=== PATIENT | male | born 1955 | race Caucasian/White ===

== ENCOUNTER → 2017-07-28 | Outpatient (CLI) | payer OTHER | END | disposition home or self-care (01) | LOC: MAMO-SONO 08:15 → SONOGRAMA 08:54 | DX: M75.121 Complete rotator cuff tear or rupture of right shoulder, not specified as traumatic (principal) ==

== ENCOUNTER 2021-10-19 01:57 | Emergency (ER) | payer OTHER ==
[~2021-10-19] VITALS: Ht 167.6 cm; Wt 81.6 kg
[2021-10-19] MEDS ORDERED: COZAAR50 MG PO (02:06)
[2021-10-19] MEDS ORDERED: SIMVASTATIN80 MG PO (02:07)
[2021-10-19] MEDS ORDERED: MOLNUPIRAVIR (200 MG PO (04:59)
[2021-10-19] MEDS ORDERED: ACETAMINOPHEN650 M2 PO (04:59)
[2021-10-19] MEDS ORDERED: MUCINEX DM ER1 EAC1 PO (04:59)
== END 2021-10-19 05:08 | disposition home or self-care (01) ==
LOC: ER 01:57
DX: U07.1 COVID-19 (principal)

== ENCOUNTER 2022-09-30 23:30 | Emergency (ER) | payer OTHER ==
[~2022-09-30] VITALS: Ht 167.6 cm; Wt 70.8 kg
[~2022-09-30 23:30] MED LIST: ACETAMINOPHEN650 M2 PO; COZAAR50 MG PO; MOLNUPIRAVIR (200 MG PO; MUCINEX DM ER1 EAC1 PO; SIMVASTATIN80 MG PO
[2022-10-01] MEDS ORDERED: INTESTINEX680 M1 PO (07:02)
[2022-10-01] MEDS ORDERED: DICY20TA PO (07:02)
[2022-10-01] MEDS ORDERED: PEPCID AC20 MG PO (07:02)
== END 2022-10-01 07:24 | disposition home or self-care (01) ==
LOC: ER 23:30
DX: K59.00 Constipation, unspecified (principal); R10.9 Unspecified abdominal pain; R11.0 Nausea; I12.9 Hypertensive chronic kidney disease with stage 1 through stage 4 chronic kidney disease, or unspecified chronic kidney disease; N18.9 Chronic kidney disease, unspecified; K29.70 Gastritis, unspecified, without bleeding; K57.30 Diverticulosis of large intestine without perforation or abscess without bleeding; N32.3 Diverticulum of bladder; N20.0 Calculus of kidney

== ENCOUNTER 2023-03-02 13:43 | Emergency (ER) | payer OTHER ==
[~2023-03-02] VITALS: Ht 167.6 cm; Wt 72.6 kg
[~2023-03-02 13:43] MED LIST changes: +DICY20TA PO; +INTESTINEX680 M1 PO; +PEPCID AC20 MG PO
[2023-03-02 17:03] LABS: HEMATOCRIT 41.5 % (39.0-48.0); HEMOGLOBIN 14.5 g/dL (13-16.00); MEAN CELL VOLUME 87.3 fL (80.0-100.00); MEAN CORPUSCULAR HEMOGLOBIN 30.5 pg (27.00-32.0); PLATELET COUNT 200 K/uL (150-450); RED BLOOD COUNT 4.75 M/uL (4.00-6.00); RED CELL DISTRIBUTION WIDTH 13.4 % (11.5-14.5)
[2023-03-02] MEDS ORDERED: ZITHROMAX500 MG PO (17:49)
== END 2023-03-02 17:53 | disposition home or self-care (01) ==
LOC: ER 13:43
PROVIDERS: Nurse Practitioner Family
DX: J98.8 Other specified respiratory disorders (principal); B97.89 Other viral agents as the cause of diseases classified elsewhere; Z20.822 Contact with and (suspected) exposure to COVID-19; I10 Essential (primary) hypertension
CPT/HCPCS: 36415; 96372; 99283; J1100

== ENCOUNTER 2023-10-17 13:19 | Emergency (ER) | payer OTHER ==
[~2023-10-17] VITALS: Ht 167.6 cm; Wt 71.2 kg
[~2023-10-17 13:19] MED LIST changes: +ZITHROMAX500 MG PO
[2023-10-17] MEDS ORDERED: KETOROLAC TROMETHAMINE 30 MG VIAL IM ONE (15:00)
== END 2023-10-17 16:56 ==
LOC: ER 13:20
DX: M25.561 Pain in right knee (principal); I10 Essential (primary) hypertension
CPT/HCPCS: 73560; 96372; 99283; J1885

== ENCOUNTER 2024-12-05 05:32 | Emergency (ER) | payer OTHER ==
[~2024-12-05] VITALS: Ht 167.6 cm; Wt 72.6 kg
[2024-12-05] MEDS ORDERED: SIMVASTATIN5 MG (05:58)
[2024-12-05] MEDS ORDERED: PRILOSEC OTC20 MG (05:58)
[2024-12-05] MEDS ORDERED: ACETAMINOPHEN 500 MG GEL..CAP PO ONE ×2 (08:42→08:45)
[2024-12-05] MEDS ORDERED: GUAIFENESIN 200 MG/10 ML BLIST.PACK PO ONE ×2 (08:42→08:45)
[2024-12-05 09:11] LABS: BASO % 0.6 % (0.1-1.2); EOS # 0.12 (0.04-0.54); EOS % 2.3 % (0.7-7.0); LYMPH # 1.48 (1.18-3.74); LYMPH % 28.6 % (19.3-53.1); MEAN PLATELET VOLUME 10.00 fl (9.4-12.4); MONO # 0.74 (0.24-0.82); NEUT # 2.80 (1.56-6.13); NEUT % 54.2 % (34.0-71.1); RED CELL DISTRIBUTION WIDTH 12.6 % (11.6-14.4)
[2024-12-05 09:12] LABS: COVID-19 AG POSITIVE (NEGATIVE)
[2024-12-05 09:17] LABS: MONO % 14.3 % (4.7-12.5)
== END 2024-12-05 10:13 | disposition home or self-care (01) ==
LOC: ER 05:32
PROVIDERS: General Practice
DX: U07.1 COVID-19 (principal); R05.9 Cough, unspecified; I10 Essential (primary) hypertension